=== PATIENT | male | born 1945 | race Caucasian/White ===

== ENCOUNTER 2017-03-31 20:39 | Inpatient (IN) | payer MEDICARE, OTHER ==
[~2017-03-31] VITALS: Ht 182.9 cm; Wt 97.6 kg
[2017-03-31 21:44] LABS: BASOPHIL 0.1 % (0-2); EOSINOPHIL 0 % (0-7); HCT 39.2 % (42.0-52.0); HGB 13.1 g/dl (13.2-18.0); LYMPHOCYTE 4.3 % (15-48); MCH 28.9 pg (25.0-31.0); MCHC 33.4 g/dL (32.0-36.0); MCV 86.3 fL (78.0-100.0); MPV 10.4 fL (6.0-9.5); NEUTROPHIL 86.6 % (41-80); PLT 220 K/uL (150-400); RBC 4.54 M/uL (4.70-6.00); RDW 14.7 % (11.5-14.0)
[2017-03-31 21:47] LABS: WBC 21.1 K/uL (4.0-10.5)
[2017-03-31 21:53] LABS: INR 1.67 (0.9-1.2); PROTHROMBIN TIME 18.7 SECONDS (11.4-13.2); PTT 42.2 SECONDS (24.3-32.1)
[2017-03-31 22:03] LABS: ALBUMIN 3.7 g/dL (3.4-4.8); BILIRUBIN - TOTAL 2.6 mg/dL (0.1-1.0); CREATININE 1.1 mg/dL (0.7-1.2); GLOBULIN (CALCULATION) 4.3 g/dL (2.2-4.2); POTASSIUM 4.2 mmol/L (3.5-5.1)
[2017-03-31 22:06] LABS: LACTIC ACID 2.7 mmol/L (0.5-2.2)
[2017-03-31 22:10] LABS: ALCOHOL (ETOH) MEDICAL NONE DETECTED; TSH (THYROID STIM HORMONE) 0.536 uIU/mL (0.270-4.200)
[2017-04-01] LABS: BILIRUBIN NEGATIVE (NEGATIVE); BLOOD NEGATIVE Ery/uL (NEGATIVE); CLARITY CLEAR (CLEAR); COLOR YELLOW (YELLOW); GLUCOSE (U) NORMAL (NORMAL); KETONE (U) NEGATIVE (NEGATIVE); LEUKOCYTES NEGATIVE Leu/uL (NEGATIVE); NITRITE NEGATIVE (NEGATIVE); PROTEIN 1+ mg/dL (NEGATIVE)
[2017-04-01 06:06] LABS: BASOPHIL 0.2 % (0-2); EOSINOPHIL 0.2 % (0-7); HCT 33.2 % (42.0-52.0); MCH 29.4 pg (25.0-31.0); MCHC 33.1 g/dL (32.0-36.0); MCV 88.8 fL (78.0-100.0); MONOCYTE 10.5 % (0-12); MPV 10.4 fL (6.0-9.5); NEUTROPHIL 80.1 % (41-80); PLT 156 K/uL (150-400); RBC 3.74 M/uL (4.70-6.00); RDW 14.8 % (11.5-14.0); WBC 13.2 K/uL (4.0-10.5)
[2017-04-01 06:35] LABS: INR 1.8 (0.9-1.2); PROTHROMBIN TIME 19.8 SECONDS (11.4-13.2)
[2017-04-01 06:39] LABS: ALBUMIN 2.8 g/dL (3.4-4.8); CREATININE 1.1 mg/dL (0.7-1.2); GLOBULIN (CALCULATION) 2.7 g/dL (2.2-4.2); POTASSIUM 3.8 mmol/L (3.5-5.1); TOTAL PROTEIN 5.5 g/dL (6.4-8.3)
[2017-04-02 05:31] LABS: HGB 11.3 g/dl (13.2-18.0); MCH 28.3 pg (25.0-31.0); MCHC 32.3 g/dL (32.0-36.0); MCV 87.7 fL (78.0-100.0); MPV 10.4 fL (6.0-9.5); RBC 3.99 M/uL (4.70-6.00); RDW 14.8 % (11.5-14.0)
[2017-04-02 05:39] LABS: INR 1.59 (0.9-1.2); PROTHROMBIN TIME 17.9 SECONDS (11.4-13.2)
[2017-04-02 05:50] LABS: ALBUMIN 2.9 g/dL (3.4-4.8); BILIRUBIN - TOTAL 1.2 mg/dL (0.1-1.0); GLOBULIN (CALCULATION) 3.6 g/dL (2.2-4.2); POTASSIUM 4.1 mmol/L (3.5-5.1); TOTAL PROTEIN 6.5 g/dL (6.4-8.3)
[2017-04-03 05:43] LABS: BASOPHIL 0.1 % (0-2); EOSINOPHIL 4.8 % (0-7); HCT 34.8 % (42.0-52.0); HGB 11.3 g/dl (13.2-18.0); LYMPHOCYTE 20.3 % (15-48); MCH 28.5 pg (25.0-31.0); MCHC 32.5 g/dL (32.0-36.0); MCV 87.7 fL (78.0-100.0); MONOCYTE 12.1 % (0-12); MPV 10.9 fL (6.0-9.5); NEUTROPHIL 62.7 % (41-80); PLT 184 K/uL (150-400); RBC 3.97 M/uL (4.70-6.00); RDW 14.5 % (11.5-14.0); WBC 7.5 K/uL (4.0-10.5)
[2017-04-03 05:56] LABS: INR 1.51 (0.9-1.2); PROTHROMBIN TIME 17.2 SECONDS (11.4-13.2); PTT 40.5 SECONDS (24.3-32.1)
[2017-04-03 06:20] LABS: ALBUMIN 3.3 g/dL (3.4-4.8); BILIRUBIN - TOTAL 0.9 mg/dL (0.1-1.0); CREATININE 0.8 mg/dL (0.7-1.2); GLOBULIN (CALCULATION) 3.1 g/dL (2.2-4.2); MAGNESIUM 1.96 mg/dL (1.40-2.10); PHOSPHORUS 2.9 mg/dL (2.7-4.5); POTASSIUM 4.2 mmol/L (3.5-5.1); TOTAL PROTEIN 6.4 g/dL (6.4-8.3)
[2017-04-04 05:42] LABS: HCT 35.6 % (42.0-52.0); HGB 11.6 g/dl (13.2-18.0); MCH 28.3 pg (25.0-31.0); MCHC 32.6 g/dL (32.0-36.0); MCV 86.8 fL (78.0-100.0); MPV 10.5 fL (6.0-9.5); RBC 4.1 M/uL (4.70-6.00); RDW 14.1 % (11.5-14.0); WBC 6.9 K/uL (4.0-10.5)
[2017-04-04 05:55] LABS: INR 1.64 (0.9-1.2); PROTHROMBIN TIME 18.4 SECONDS (11.4-13.2)
[2017-04-04 06:09] LABS: ALBUMIN 3.3 g/dL (3.4-4.8); BILIRUBIN - TOTAL 0.9 mg/dL (0.1-1.0); CREATININE 0.8 mg/dL (0.7-1.2); GLOBULIN (CALCULATION) 3.2 g/dL (2.2-4.2); POTASSIUM 4.3 mmol/L (3.5-5.1); TOTAL PROTEIN 6.5 g/dL (6.4-8.3)
[2017-04-05 12:05] LABS: INR 2.03 (0.9-1.2); PROTHROMBIN TIME 21.9 SECONDS (11.4-13.2)
== END 2017-04-05 13:06 | disposition home or self-care (01) | DRG 872 ==
LOC: FER 20:39 → FMS 04-01 01:22 → FICU 04-01 01:22 → FMS 04-02 09:27
PROVIDERS: Emergency Medicine; Internal Medicine; ADMIT Internal Medicine
DX: A41.9 Sepsis, unspecified organism (principal); E11.621 Type 2 diabetes mellitus with foot ulcer; I48.91 Unspecified atrial fibrillation; L97.519 Non-pressure chronic ulcer of other part of right foot with unspecified severity; I10 Essential (primary) hypertension; N40.0 Benign prostatic hyperplasia without lower urinary tract symptoms; E78.5 Hyperlipidemia, unspecified; I25.10 Atherosclerotic heart disease of native coronary artery without angina pectoris; Z79.899 Other long term (current) drug therapy; Z79.4 Long term (current) use of insulin; Z79.84 Long term (current) use of oral hypoglycemic drugs; Z79.01 Long term (current) use of anticoagulants; Z95.0 Presence of cardiac pacemaker
CPT/HCPCS: 36415; 71010; 73630; 80053; 80162; 80202; 81001; 82962; 83036; 83605; 83735; 84100; 84443; 84484; 85025; 85610; 85730; 87040; 93005; G0480; J1815; J1885; J2543; J3370; Q9967

== ENCOUNTER 2020-09-26 10:04 | Inpatient (IN) | payer MEDICARE, OTHER ==
[~2020-09-26 10:04] MED LIST: ALDACTONE25 MG PO; BASAGLAR K100 UNIT/1 SC; BUMEX1 MG PO; CEFDINIR300 MG PO; COUMADIN 5MG TAB5 MG PO; COUMADIN4 MG PO; COUMADIN7.5 MG PO; DIGOX125 MCG PO; DUONEB 2.5-0.5M1 AMP INH; FUROSEMIDE 40MG40 MG PO; GLUCOTROL10 MG PO; JANUVIA50 MG PO; LIPITOR40 MG PO; LOPRESSOR50 MG PO; METFORMIN HCL500 MG PO; NEURONTIN100 MG PO; NEURONTIN300 MG PO; NORVASC2.5 MG PO; NOVOLOG VI100 UNIT/1 SC; PEPCID20 MG PO; PREDNISONE 10MG10 MG PO; PRINIVIL20 MG PO; VIBRAMYCIN100 MG PO; nebulizer
[2020-09-26 10:22] LABS: BASOPHIL 0.4 % (0-2); EOSINOPHIL 1.4 % (0-7); HGB 10.7 g/dl (13.2-18.0); LYMPHOCYTE 8.9 % (15-48); MCH 25.8 pg (25.0-31.0); MCHC 29.7 g/dL (32.0-36.0); MCV 86.7 fL (78.0-100.0); MONOCYTE 11.4 % (0-12); MPV 10.9 fL (6.0-9.5); NEUTROPHIL 77.5 % (41-80); NRBC 0; PLT 242 K/uL (150-400); RBC 4.15 M/uL (4.70-6.00); RDW 17.3 % (11.5-14.0); WBC 7.7 K/uL (4.0-10.5)
[2020-09-26 10:46] LABS: PRO-BNP 5474 pg/mL (<125)
[2020-09-26 10:49] LABS: INR 5.68 (0.9-1.2); PROTHROMBIN TIME 49.1 SECONDS (11.4-13.6)
[2020-09-26 10:52] LABS: LACTIC ACID 1.5 mmol/L (0.4-1.9)
[2020-09-26 11:03] LABS: ALBUMIN 3.1 g/dL (3.4-5.0); BILIRUBIN - TOTAL 1.5 mg/dL (0.2-1.0); BUN/CREAT RATIO (CALC) 18.8 RATIO; CREATININE 0.85 mg/dL (0.67-1.17); GLOBULIN (CALCULATION) 4.4 g/dL; POTASSIUM 3.7 mmol/L (3.5-5.1); TOTAL PROTEIN 7.5 g/dL (6.4-8.2)
[2020-09-26 11:05] LABS: BILIRUBIN 1+ mg/dL (NEGATIVE); BLOOD NEGATIVE Ery/uL (NEGATIVE); CLARITY CLEAR (CLEAR); COLOR YELLOW (YELLOW); GLUCOSE (U) NORMAL (NORMAL); LEUKOCYTES NEGATIVE Leu/uL (NEGATIVE); NITRITE NEGATIVE (NEGATIVE); PROTEIN 1+ mg/dL (NEGATIVE); SPECIFIC GRAVITY >=1.030 (1.001-1.030); pH 5.5 (5.0-9.0)
[2020-09-26 11:12] LABS: AMORPHOUS URATES CRYSTALS MODERATE; BACTERIA 1+; URINARY RBC RARE; URINARY WBC RARE
[2020-09-26] MEDS ORDERED: GLIPIZIDE XL10 MG PO (13:42)
[2020-09-26] MEDS ORDERED: WARFARIN SODIU7.5 MG PO (13:44)
[2020-09-26] MEDS ORDERED: NEURONTIN100 MG PO (13:46)
[2020-09-26] MEDS ORDERED: MUPIROCIN 2%22 GM TOP (13:46)
[2020-09-26] MEDS ORDERED: METOLAZONE2.5 MG PO (13:51)
[2020-09-27 05:50] LABS: BASOPHIL 0.6 % (0-2); EOSINOPHIL 3.7 % (0-7); HCT 33.6 % (42.0-52.0); HGB 10.1 g/dl (13.2-18.0); LYMPHOCYTE 11.9 % (15-48); MCH 25.7 pg (25.0-31.0); MCHC 30.1 g/dL (32.0-36.0); MCV 85.5 fL (78.0-100.0); MPV 11.1 fL (6.0-9.5); NEUTROPHIL 69.5 % (41-80); NRBC 0; PLT 222 K/uL (150-400); RBC 3.93 M/uL (4.70-6.00); RDW 17.2 % (11.5-14.0); WBC 6.6 K/uL (4.0-10.5)
[2020-09-27 06:08] LABS: BUN/CREAT RATIO (CALC) 14.5 RATIO; CREATININE 1.1 mg/dL (0.67-1.17); POTASSIUM 3.8 mmol/L (3.5-5.1)
[2020-09-27 06:19] LABS: PROTHROMBIN TIME 50.4 SECONDS (11.4-13.6)
[2020-09-27 06:28] LABS: INR 5.88 (0.9-1.2)
--- NOTE | 2020-09-27 15:31 | NUR ---
09/27/20 Mr. Morales lives with his son, [id number] and their 2 children. He has home 02, rw, and s.chair. He has had [facility] in the past and would like their services again. Affliation is explained. A referral was made to [facility]. Mira Joseph reports that [facility] stopped seeing patient due to the request from family for Hospice. According to Ms. Joseph, the family then said they wished to consult with the PCP before considering Hospice.
[2020-09-28 05:22] LABS: BASOPHIL 0.4 % (0-2); EOSINOPHIL 3.2 % (0-7); HCT 33.5 % (42.0-52.0); HGB 10.2 g/dl (13.2-18.0); LYMPHOCYTE 9.7 % (15-48); MCHC 30.4 g/dL (32.0-36.0); MCV 85.5 fL (78.0-100.0); MONOCYTE 14.9 % (0-12); MPV 11.1 fL (6.0-9.5); NEUTROPHIL 71.5 % (41-80); NRBC 0; PLT 209 K/uL (150-400); RBC 3.92 M/uL (4.70-6.00); WBC 7.5 K/uL (4.0-10.5)
[2020-09-28 05:36] LABS: PROTHROMBIN TIME 47.5 SECONDS (11.4-13.6)
[2020-09-28 06:03] LABS: INR 5.45 (0.9-1.2)
[2020-09-28 06:29] LABS: BUN/CREAT RATIO (CALC) 18.3 RATIO; CREATININE 0.93 mg/dL (0.67-1.17); POTASSIUM 3.9 mmol/L (3.5-5.1)
[2020-09-29 05:38] LABS: BASOPHIL 0.4 % (0-2); EOSINOPHIL 4.3 % (0-7); HCT 34.3 % (42.0-52.0); HGB 10.2 g/dl (13.2-18.0); LYMPHOCYTE 10.6 % (15-48); MCH 25.2 pg (25.0-31.0); MCHC 29.7 g/dL (32.0-36.0); MCV 84.7 fL (78.0-100.0); MONOCYTE 14.5 % (0-12); MPV 10.8 fL (6.0-9.5); NEUTROPHIL 69.8 % (41-80); NRBC 0; PLT 214 K/uL (150-400); RBC 4.05 M/uL (4.70-6.00); WBC 7.5 K/uL (4.0-10.5)
[2020-09-29 05:47] LABS: INR 3.72 (0.9-1.2); PROTHROMBIN TIME 35.2 SECONDS (11.4-13.6)
[2020-09-29 05:57] LABS: BUN/CREAT RATIO (CALC) 19.4 RATIO; CREATININE 0.93 mg/dL (0.67-1.17); POTASSIUM 3.7 mmol/L (3.5-5.1)
[2020-09-30 05:49] LABS: BASOPHIL 0.7 % (0-2); EOSINOPHIL 6.2 % (0-7); HCT 34.3 % (42.0-52.0); HGB 10.3 g/dl (13.2-18.0); LYMPHOCYTE 12.9 % (15-48); MCH 25.4 pg (25.0-31.0); MCV 84.7 fL (78.0-100.0); MONOCYTE 14.3 % (0-12); MPV 10.9 fL (6.0-9.5); NEUTROPHIL 65.5 % (41-80); NRBC 0; PLT 216 K/uL (150-400); RBC 4.05 M/uL (4.70-6.00); RDW 16.9 % (11.5-14.0); WBC 7.5 K/uL (4.0-10.5)
[2020-09-30 05:52] LABS: INR 2.58 (0.9-1.2); PROTHROMBIN TIME 26.4 SECONDS (11.4-13.6)
[2020-09-30 06:22] LABS: BUN/CREAT RATIO (CALC) 18.1 RATIO; CREATININE 0.94 mg/dL (0.67-1.17); POTASSIUM 3.9 mmol/L (3.5-5.1)
[2020-10-01 05:37] LABS: BASOPHIL 0.8 % (0-2); EOSINOPHIL 7.3 % (0-7); HCT 34.3 % (42.0-52.0); HGB 10.4 g/dl (13.2-18.0); LYMPHOCYTE 10.2 % (15-48); MCH 25.4 pg (25.0-31.0); MCHC 30.3 g/dL (32.0-36.0); MCV 83.9 fL (78.0-100.0); MONOCYTE 14.4 % (0-12); MPV 11.6 fL (6.0-9.5); NEUTROPHIL 66.9 % (41-80); NRBC 0; PLT 222 K/uL (150-400); RBC 4.09 M/uL (4.70-6.00); RDW 16.9 % (11.5-14.0); WBC 7.9 K/uL (4.0-10.5)
[2020-10-01 05:43] LABS: INR 1.93 (0.9-1.2)
[2020-10-01 05:54] LABS: BUN/CREAT RATIO (CALC) 20.2 RATIO; CREATININE 1.09 mg/dL (0.67-1.17); MAGNESIUM 2.1 mg/dL (1.8-2.4); POTASSIUM 3.6 mmol/L (3.5-5.1)
--- NOTE | 2020-10-01 14:08 | NUR ---
PT. IS CURRENT WITH INTREPID . HE HAS HOME O2. PLESE NOTIFY [facility] UPON DISCHARGE.
--- NOTE | 2020-10-02 07:36 | NUR ---
ORIENTATING NADEGE GORDILLO, VERIFIES ALL DOCUMENTATION IS TRUE AND ACCURATE. DID ASSESSMENTS AND MEDICATION PASSES WITH NADEGE GORDILLO
[2020-10-04 05:42] LABS: BASOPHIL 0.7 % (0-2); EOSINOPHIL 9.9 % (0-7); HCT 35.6 % (42.0-52.0); HGB 10.8 g/dl (13.2-18.0); LYMPHOCYTE 10.7 % (15-48); MCH 25.7 pg (25.0-31.0); MCHC 30.3 g/dL (32.0-36.0); MCV 84.6 fL (78.0-100.0); MONOCYTE 9.6 % (0-12); MPV 11.5 fL (6.0-9.5); NEUTROPHIL 68.6 % (41-80); NRBC 0; PLT 235 K/uL (150-400); RBC 4.21 M/uL (4.70-6.00); WBC 8.8 K/uL (4.0-10.5)
[2020-10-04 05:57] LABS: INR 1.4 (0.9-1.2); PROTHROMBIN TIME 16.3 SECONDS (11.4-13.6)
[2020-10-04 06:05] LABS: ALBUMIN 3.1 g/dL (3.4-5.0); BILIRUBIN - TOTAL 1.6 mg/dL (0.2-1.0); CREATININE 1.24 mg/dL (0.67-1.17); GLOBULIN (CALCULATION) 4.6 g/dL; PHOSPHORUS 3.1 mg/dL (2.6-4.7); POTASSIUM 4.2 mmol/L (3.5-5.1); TOTAL PROTEIN 7.7 g/dL (6.4-8.2)
--- NOTE | 2020-10-04 10:14 | NUR ---
10/04/20 Clarification: Mr. Morales chose [facility] when interviewed. [facility] later called to say they are currently seeing Mr. Morales. The HH choices were again reviewed with Mr. Morales. He requested fro the choice to be made by his grandson, Salvatore Morales. Salvatore Morales,[phone], chose [facility] per telephone conversation. [facility] was notified of the change in [employer].
[2020-10-04] MEDS ORDERED: TOPROL XL 50 MG50 MG PO (10:30)
[2020-10-04] MEDS ORDERED: ASPIRIN EC81 MG PO (10:30)
[2020-10-04] MEDS ORDERED: BUMETANIDE2 MG PO (10:30)
[2020-10-04] MEDS ORDERED: ELIQUIS2.5 MG PO (10:31)
[2020-10-04] MEDS ORDERED: GLUCOTROL XL5 MG PO (13:25)
== END 2020-10-04 16:45 | disposition home health service (06) | DRG 637 ==
LOC: FER 10:04 → FTCU 11:14 → FMS 10-01 16:40
PROVIDERS: Emergency Medicine; Internal Medicine; Nurse Practitioner; ADMIT Allergy & Immunology Allergy
DX: E11.649 Type 2 diabetes mellitus with hypoglycemia without coma (principal); I50.33 Acute on chronic diastolic (congestive) heart failure; J90 Pleural effusion, not elsewhere classified; I48.20 Chronic atrial fibrillation, unspecified; I11.0 Hypertensive heart disease with heart failure; L89.212 Pressure ulcer of right hip, stage 2; Z20.822 Contact with and (suspected) exposure to COVID-19; I25.10 Atherosclerotic heart disease of native coronary artery without angina pectoris; Z95.1 Presence of aortocoronary bypass graft; Z87.891 Personal history of nicotine dependence; Z79.01 Long term (current) use of anticoagulants; T45.515A Adverse effect of anticoagulants, initial encounter; E78.5 Hyperlipidemia, unspecified; N40.0 Benign prostatic hyperplasia without lower urinary tract symptoms; J44.9 Chronic obstructive pulmonary disease, unspecified
CPT/HCPCS: 36415; 71045; 71046; 80048; 80053; 81001; 82962; 83036; 83605; 83735; 83880; 84100; 84484; 85025; 85610; 93005; 94640; 96374; 97162; 97166; 97530-GP; 97535; J1940; P9612; U0002

== ENCOUNTER 2021-02-27 22:07 | Emergency (ER) | payer MEDICARE, OTHER ==
[~2021-02-27 22:07] MED LIST changes: +ASPIRIN EC81 MG PO; +BUMETANIDE2 MG PO; +ELIQUIS2.5 MG PO; +GLIPIZIDE XL10 MG PO; +GLUCOTROL XL5 MG PO; +METOLAZONE2.5 MG PO; +MUPIROCIN 2%22 GM TOP; +TOPROL XL 50 MG50 MG PO; +WARFARIN SODIU7.5 MG PO
[2021-02-28] MEDS ORDERED: VIBRAMYCIN100 MG PO (00:04)
== END 2021-02-28 00:39 | disposition home or self-care (01) ==
LOC: FER 22:07
DX: L03.116 Cellulitis of left lower limb (principal); E11.51 Type 2 diabetes mellitus with diabetic peripheral angiopathy without gangrene; I83.12 Varicose veins of left lower extremity with inflammation; I10 Essential (primary) hypertension; Z79.899 Other long term (current) drug therapy
CPT/HCPCS: 99283

== ENCOUNTER 2021-11-08 02:53 | Inpatient (IN) | payer MEDICARE, OTHER ==
[~2021-11-08] VITALS: Ht 182.9 cm; Wt 104.3 kg
[~2021-11-08 02:53] MED LIST changes: +DIGITEK125 MCG PO; -DIGOX125 MCG PO
[2021-11-08 03:36] LABS: BASOPHIL 0.3 % (0-2); EOSINOPHIL 5.7 % (0-7); HCT 34.4 % (42.0-52.0); HGB 10.7 g/dl (13.2-18.0); LYMPHOCYTE 6.7 % (15-48); MCH 28.5 pg (25.0-31.0); MCHC 31.1 g/dL (32.0-36.0); MCV 91.7 fL (78.0-100.0); MONOCYTE 10.6 % (0-12); MPV 10.7 fL (6.0-9.5); NEUTROPHIL 76.2 % (41-80); NRBC 0; PLT 191 K/uL (150-400); RBC 3.75 M/uL (4.70-6.00); RDW 16.5 % (11.5-14.0); WBC 8.6 K/uL (4.0-10.5)
[2021-11-08 04:00] LABS: LACTIC ACID 1.9 mmol/L (0.4-1.9)
[2021-11-08 04:04] LABS: CREATININE 1.43 mg/dL (0.67-1.17); POTASSIUM 3.6 mmol/L (3.5-5.1)
[2021-11-08 04:18] LABS: CORONAVIRUS 2019 SARS-COV-2 NEGATIVE (NEGATIVE); INFLUENZA A NAA NEGATIVE (NEGATIVE)
[2021-11-08 05:41] LABS: INR 2.95 (0.9-1.2); PROTHROMBIN TIME 29.7 SECONDS (11.8-13.4)
[2021-11-08 05:42] LABS: PTT 49.6 SECONDS (24.4-34.7)
[2021-11-08 10:01] LABS: IRON % SATURATION 11.7 %SAT (20-50)
[2021-11-09 04:15] LABS: BASOPHIL 0.4 % (0-2); EOSINOPHIL 0.4 % (0-7); HCT 31.6 % (42.0-52.0); HGB 9.8 g/dl (13.2-18.0); LYMPHOCYTE 5.9 % (15-48); MCH 28.2 pg (25.0-31.0); MCV 91.1 fL (78.0-100.0); MONOCYTE 15.6 % (0-12); MPV 11.6 fL (6.0-9.5); NEUTROPHIL 77.2 % (41-80); NRBC 0; PLT 172 K/uL (150-400); RBC 3.47 M/uL (4.70-6.00); RDW 16.5 % (11.5-14.0); WBC 7.9 K/uL (4.0-10.5)
[2021-11-09 04:33] LABS: BUN/CREAT RATIO (CALC) 28.5 RATIO; CREATININE 1.37 mg/dL (0.67-1.17); FT4 (FREE T4) 1.3 ng/dL (0.76-1.46); POTASSIUM 3.8 mmol/L (3.5-5.1)
[2021-11-10 06:25] LABS: BASOPHIL 0.3 % (0-2); EOSINOPHIL 7.7 % (0-7); HCT 30.8 % (42.0-52.0); HGB 9.3 g/dl (13.2-18.0); LYMPHOCYTE 11.2 % (15-48); MCH 27.2 pg (25.0-31.0); MCHC 30.2 g/dL (32.0-36.0); MCV 90.1 fL (78.0-100.0); MONOCYTE 14.9 % (0-12); MPV 11.4 fL (6.0-9.5); NEUTROPHIL 65.6 % (41-80); NRBC 0; PLT 156 K/uL (150-400); RBC 3.42 M/uL (4.70-6.00); RDW 16.4 % (11.5-14.0)
[2021-11-10 06:44] LABS: BUN/CREAT RATIO (CALC) 32.1 RATIO; CREATININE 1.31 mg/dL (0.67-1.17); POTASSIUM 3.6 mmol/L (3.5-5.1)
[2021-11-11 06:01] LABS: BASOPHIL 0.2 % (0-2); EOSINOPHIL 9.6 % (0-7); HCT 31.9 % (42.0-52.0); HGB 9.8 g/dl (13.2-18.0); LYMPHOCYTE 19.9 % (15-48); MCH 27.8 pg (25.0-31.0); MCHC 30.7 g/dL (32.0-36.0); MCV 90.6 fL (78.0-100.0); MPV 11.7 fL (6.0-9.5); NEUTROPHIL 54.9 % (41-80); NRBC 0; PLT 139 K/uL (150-400); RBC 3.52 M/uL (4.70-6.00); RDW 16.2 % (11.5-14.0); WBC 5.3 K/uL (4.0-10.5)
[2021-11-11 06:17] LABS: CREATININE 1.18 mg/dL (0.67-1.17); POTASSIUM 3.6 mmol/L (3.5-5.1)
[2021-11-11] MEDS ORDERED: TAMSULOSIN HCL0.4 MG PO (09:11)
[2021-11-11] MEDS ORDERED: FOLIC ACID1 MG PO (09:11)
[2021-11-11] MEDS ORDERED: AUGMENTIN 500-1 EACH PO (09:11)
[2021-11-15 16:12] LABS: ORGANISM ID Not indicated. (.); SPECIMEN SOURCE Urine (.); STREPTOCOCCUS PNEUMONIAE AG Negative (Negative)
== END 2021-11-11 11:30 | disposition home health service (06) | DRG 193 ==
LOC: FER 02:53 → FTCU 07:43
PROVIDERS: Internal Medicine; ADMIT Family Medicine
PROC: 5A09357 Assistance with Respiratory Ventilation, Less than 24 Consecutive Hours, Continuous Positive Airway Pressure (ICD-10-PCS; principal; 2021-11-08)
PROC: 8E0ZXY6 Isolation (ICD-10-PCS; 2021-11-09)
DX: J18.9 Pneumonia, unspecified organism (principal); J96.21 Acute and chronic respiratory failure with hypoxia; I50.33 Acute on chronic diastolic (congestive) heart failure; J44.0 Chronic obstructive pulmonary disease with (acute) lower respiratory infection; I13.0 Hypertensive heart and chronic kidney disease with heart failure and stage 1 through stage 4 chronic kidney disease, or unspecified chronic kidney disease; Z20.822 Contact with and (suspected) exposure to COVID-19; I25.10 Atherosclerotic heart disease of native coronary artery without angina pectoris; E11.22 Type 2 diabetes mellitus with diabetic chronic kidney disease; N18.30 Chronic kidney disease, stage 3 unspecified; D63.1 Anemia in chronic kidney disease; E11.51 Type 2 diabetes mellitus with diabetic peripheral angiopathy without gangrene; A08.4 Viral intestinal infection, unspecified; I48.91 Unspecified atrial fibrillation; I27.20 Pulmonary hypertension, unspecified; E78.5 Hyperlipidemia, unspecified; N40.1 Benign prostatic hyperplasia with lower urinary tract symptoms; R39.14 Feeling of incomplete bladder emptying; R59.0 Localized enlarged lymph nodes; R35.0 Frequency of micturition; Z99.81 Dependence on supplemental oxygen; Z95.0 Presence of cardiac pacemaker; Z79.01 Long term (current) use of anticoagulants; Z79.82 Long term (current) use of aspirin; Z79.84 Long term (current) use of oral hypoglycemic drugs; Z79.899 Other long term (current) drug therapy; Z98.49 Cataract extraction status, unspecified eye; Z95.828 Presence of other vascular implants and grafts; Z87.891 Personal history of nicotine dependence; Z82.49 Family history of ischemic heart disease and other diseases of the circulatory system
CPT/HCPCS: 36415; 36600; 71045; 71250; 80048; 82607; 82803; 82962; 83036; 83540; 83550; 83605; 83880; 84145; 84439; 84443; 84481; 84484; 85025; 85379; 85610; 85730; 87040; 87449; 93005; 94010; 94640; 94660; 94664; 94762; 97162; 97165; 97530; 97530-GP; 97535; J0696; J1815; J2930; J7050; U0002